=== PATIENT | male | born 1985 | race Caucasian/White ===

== ENCOUNTER 2016-06-24 06:39 | Day surgery (SDC) | payer OTHER ==
[~2016-06-24] VITALS: Ht 185.4 cm; Wt 92.0 kg
[~2016-06-24 06:39] MED LIST: ALBU8.5H3 INH; TRIA10.8 NAS
[2016-06-24] MEDS ORDERED: COCAINE TOPICAL SOLN 4%, 4ML ONE (07:08)
[2016-06-24] MEDS ORDERED: LIDOCAINE/PF 1%-EPI 1:200K, 30ML ONE (07:08)
[2016-06-24] MEDS ORDERED: MUPIROCIN OINT 2%, 22GM ONE (07:08)
[2016-06-24] MEDS ORDERED: OXYMETAZOLINE NASAL SPRAY 0.05%, 15ML ONE (07:08)
[2016-06-24] MEDS ORDERED: LACTATED RINGERS 1,000 ML IV SCH (07:19)
[2016-06-24 07:38] VITALS: BP 111/74
[2016-06-24] MEDS ORDERED: FENTANYL PF 250 MCG/5ML ONE (08:29)
[2016-06-24] MEDS ORDERED: MIDAZOLAM 1 MG/ML, 2ML ONE (08:30)
[2016-06-24] MEDS ORDERED: CEFAZOLIN 1,000 MG ONE (08:36)
[2016-06-24] MEDS ORDERED: SUCCINYLCHOLINE 20 MG/ML, 10ML ONE (08:36)
[2016-06-24] MEDS ORDERED: PROPOFOL 10 MG/ML, 20ML ONE (08:36)
[2016-06-24] MEDS ORDERED: ROCURONIUM 10 MG/ML ONE (08:36)
[2016-06-24] MEDS ORDERED: DEXAMETHASONE 4 MG/ML, 1ML ONE (08:36)
[2016-06-24] MEDS ORDERED: GLYCOPYRROLATE 0.2MG/1ML ONE (08:36)
[2016-06-24] MEDS ORDERED: NEOSTIGMINE 1 MG/ML, 10ML ONE (08:36)
[2016-06-24] MEDS ORDERED: ONDANSETRON 2MG/ML, 2ML ONE (08:36)
[2016-06-24] MEDS ORDERED: PROMETHAZINE 25 MG/ML, 1ML IV PRN (09:00)
[2016-06-24] MEDS ORDERED: hydrALAzine 20 MG/ML, 1ML IV PRN (09:00)
[2016-06-24] MEDS ORDERED: OXYcodone 5 MG/5 ML ORAL.SOL UDC PO PRN (09:00)
[2016-06-24] MEDS ORDERED: LABETALOL 5MG/ML, 20ML IV PRN (09:00)
[2016-06-24] MEDS ORDERED: HYDROmorphone 1 MG/ML, 1ML IV PRN (09:00)
[2016-06-24] MEDS ORDERED: MEPERIDINE/PF 25MG/0.5ML IVPush PRN (09:00)
[2016-06-24] MEDS ORDERED: ONDANSETRON 2MG/ML, 2ML IVPush PRN (09:00)
[2016-06-24] MEDS ORDERED: EPHEDRINE 50 MG/ML, 1ML IVPush PRN (09:00)
[2016-06-24] MEDS ORDERED: ACETAMINOPHEN 325 MG TABLET PO PRN (09:00)
[2016-06-24] MEDS ORDERED: METOPROLOL 1 MG/ML, 5ML IV PRN (09:00)
[2016-06-24] MEDS ORDERED: ALBUTEROL SULFATE 2.5 MG/3 ML NPPB PRN (09:00)
[2016-06-24] MEDS ORDERED: OXYMETAZOLINE NASAL SPRAY 0.05%, 15ML NAS ONE (09:05)
[2016-06-24] MEDS ORDERED: COCAINE TOPICAL SOLN 4%, 4ML TP ONE (09:06)
[2016-06-24] MEDS ORDERED: LIDOCAINE 1%-EPI 1:100K, 30ML INFIL ONE (09:06)
[2016-06-24] MEDS ORDERED: FENTANYL PF 100 MCG/2ML ONE (09:55)
[2016-06-24] MEDS ORDERED: OXYcodone 5 MG/5 ML ORAL.SOL UDC ONE (09:55)
[2016-06-24] MEDS: FENTANYL PF 100 MCG/2ML IV PRN ×2 (10:10→10:15)
[2016-06-24] MEDS ORDERED: HYDROmorphone 2 MG/ML, 1ML ONE (10:33)
== END 2016-06-24 14:35 | disposition home or self-care (01) ==
LOC: OUT 06:39
PROVIDERS: ATTEND Otolaryngology Facial Plastic Surgery
DX: J34.2 Deviated nasal septum (principal); J34.3 Hypertrophy of nasal turbinates; G47.33 Obstructive sleep apnea (adult) (pediatric); J45.909 Unspecified asthma, uncomplicated
CPT/HCPCS: 30140; 30520; 36415; 85025; J0330; J0690; J1100; J1170; J2250; J2405; J2704; J2710; J3010; J3490; J7120